=== PATIENT | male | born 1960 | race Caucasian/White ===

== ENCOUNTER → 2019-04-23 14:25 | Outpatient (CLI) | payer OTHER ==
--- NOTE | 2019-04-29 13:56 | ST ---
PATIENT:CHENTE LAMA MEDICAL RECORD: [id number] SEX: M LOCATION:[facility] ORDER #: ADMISSION DATE: 04/23/19 AGE OF PATIENT: 58 REFERRING PHYSICIAN: INTERPRETING PHYSICIAN: MOOKIE WALTON MD DATE OF SERVICE: 04/23/2019 PROCEDURE: Treadmill stress test. Baseline ECG is normal. Exercised for 9 minutes on Timur protocol. Maximum heart rate of 143 beats per minute, greater than 85% maximum predicted. No ECG changes of ischemia. No symptoms of ischemia. Normal blood pressure response to exercise. No arrhythmias noted. Good exercise tolerance for age. TRANSINT:[id number] Voice Confirmation ID: [id number] DOCUMENT ID: [id number] MOOKIE WALTON MD at 1356 CC: [id number] DICTATION DATE: 04/24/19 1339 SUPERINTENDENT PRODUCTION: 04/25/19 0722 DEP CLI 04/23/19 [place] [id number] [place] [id number]
== END | disposition home or self-care (01) ==
LOC: D.HCCARDIO 14:25
PROVIDERS: ATTEND Internal Medicine Interventional Cardiology
DX: R42 Dizziness and giddiness (principal)

== ENCOUNTER → 2019-05-02 11:31 | Outpatient (CLI) | payer OTHER ==
--- NOTE | 2019-05-06 11:12 | EC ---
PATIENT:CHENTE LAMA DATE OF SERVICE: 05/02/19 SEX: M MEDICAL RECORD: [id number] DATE OF : 64 LOCATION:[facility] AGE OF PATIENT: 58 ADMISSION DATE: 05/02/19 REFERRING PHYSICIAN: INTERPRETING PHYSICIAN: MOOKIE WALTON MD ECHOCARDIOGRAM REPORT ECHO CHARGES 4 ECHO COMPLETE Date: 05/02/19 CLINICAL DIAGNOSIS: DIZZINESS,DYSPNEA ON EXERTION HEART MURMUR,C BRUIT,HTN ECHOCARDIOGRAPHIC MEASUREMENTS (adult normal given) AC root (d.<3.7cm) 3.7 cm LV Septum d (<1.2 cm> 1.1 cm Valve Excursion 1.8 cm LV Septum (systole) 1.4 cm Left Atria (s.<4.0cm> 4.1 cm LVPW d(<1.2cm) 1.5 cm RV (d.<2.3cm) 4.2 cm LVPW (sytole) 1.8 cm LV diastole(<5.6CM) 6.0 cm MV E-F(>70mm/sec) cm LV systole 4.3 cm LVOT Diameter 2.0 cm MV exc.(>10mm) 1.6 cm Est.ejection fraction (50-75%) % DOPPLER: LVIT cm/sec A 69.0 cm/sec E 93.0 cm/sec LA cm/sec RVSP 26 mmHg LVOT 119 cm/sec AOP1/2T m/s Asc. Ao 144 cm/sec RVOT 71 cm/sec RA cm/sec PA 117 cm/sec AV Gradient Peak 8.24 mmHg AV Mean 3.89 mmHg AV Area 2.7 cm MV Gradient Peak 4.55 mmHg MV Mean 1.71 mmHg MV Area cm COMMENTS: Ceramic Chemist: 2 KENISHA GONZALEZ Residential Fee Appraiser: 3 Dr. Hu TAPE# PACS Pericardial Effusion N DATE OF SERVICE: Adequate 2D, color flow and spectral Doppler, and M-mode. No LVH. LV internal dimensions are normal. Wall motion is normal. EF is greater than or equal to 55%. Aortic valve is tricuspid. No evidence of stenosis by Doppler interrogation. Left atrium is upper limits of normal to mildly dilated at 4.1 cm. Mitral valve shows no prolapse. Trace MR. Right-sided chambers are grossly normal. Trace TR. ECHOCARDIOGRAM REPORT [id number] CHENTE LAMA TRANSINT:[id number] Voice Confirmation ID: [id number] DOCUMENT ID: [id number] MOOIKE WALTON MD at 1112 CC: [id number] DICTATION DATE: 05/04/19 1017 BARREL CENTERER: 05/04/19 1205 DEP CLI 05/02/19 [place] [id number] [place] [id number]
== END | disposition home or self-care (01) ==
LOC: D.US 11:31
PROVIDERS: ATTEND Internal Medicine Interventional Cardiology
DX: R42 Dizziness and giddiness (principal)